=== PATIENT | female | born 1945 | race Caucasian/White ===

== ENCOUNTER → 2018-02-15 | Outpatient (CLI) | payer MEDICARE ==
[~2018-02-15] MED LIST: ASPI1TAB57 PO; GLUC500T4 PO; VITA1000 PO
--- NOTE | 2018-02-15 09:57 | RADRPT ---
EXAM DATE: 02/15/2018 9:53 AM EDT AGE/SEX: 72 years / Female INDICATIONS: Evaluate for Pneumonia, Pneumothorax, and communicable diseases. Pre-op right hip. Margret ent states no complaints. CLINICAL DATA: This is the patient's initial encounter. Patient reports that signs and symptoms have been present for 1 day and indicates a pain score of 0/10. MEDICAL/SURGICAL HISTORY: None. None. COMPARISON: No prior exams available for comparison. FINDINGS: Mild scattered emphysematous changes are noted. No focal infiltrate is noted. No pulmonary edema is n oted. The heart is normal. Degenerative changes and scoliosis are noted throughout the thoracolumbar spine. CONCLUSION: 1. No acute focal pulmonary infiltrate or pulmonary vascular congestion. 2. Mild scattered emphysematous changes. 3. Degenerative changes and scoliosis of the thoracolumbar spine. Electronically signed by: Tomer Stallworth MD 02/15/2018 9:56 AM EDT
--- NOTE | 2018-02-15 14:00 | EKG ---
Date Performed: 02/15/2018 Time Performed: 09:13:22 PTAGE: 72 years EKG: Sinus rhythm LOW QRS VOLTAGE IN PRECORDIAL LEADS BORDERLINE ECG NO PREVIOUS TRACING DOCTOR: Jose Olea Interpretating Date/Time 02/15/2018 13:59:34
== END ==
LOC: CPRE 09:01
PROVIDERS: ATTEND Orthopaedic Surgery
DX: Z01.810 Encounter for preprocedural cardiovascular examination (principal); Z01.811 Encounter for preprocedural respiratory examination; Z01.818 Encounter for other preprocedural examination; M16.11 Unilateral primary osteoarthritis, right hip; R94.31 Abnormal electrocardiogram [ECG] [EKG]
CPT/HCPCS: 71046; 93005